=== PATIENT | male | born 1955 | race Caucasian/White ===

== ENCOUNTER → 2016-11-05 | Outpatient (REF) | payer OTHER, MEDICAID | LOC: M LAB REF 16:40 | PROVIDERS: ATTEND Nurse Practitioner Family | DX: I11.9 Hypertensive heart disease without heart failure (principal) ==

== ENCOUNTER → 2016-11-11 | Outpatient (REF) | payer OTHER ==
[2016-11-11 12:15] LABS: ALBUMIN 3.9 GM/DL (3.2-5.2); ALBUMIN/GLOBULIN RATIO 1.26 (1.00-1.93); ALKALINE PHOSPHATASE 61 U/L (45-117); ALT/SGPT 19 U/L (12-78); ANION GAP 9 MEQ/L (8-16); AST/SGOT 13 U/L (15-37); BILIRUBIN,TOTAL 0.6 MG/DL (0.2-1.0); BLOOD UREA NITROGEN 11 MG/DL (7-18); CALCIUM LEVEL 9.3 MG/DL (8.8-10.2); CARBON DIOXIDE LEVEL 31 MEQ/L (21-32); CHLORIDE LEVEL 100 MEQ/L (98-107); CHOLESTEROL LEVEL 201 MG/DL (<200); CREATININE FOR GFR 1.07 MG/DL (0.70-1.30); GLOMERULAR FILTRATION RATE > 60.0 (>49); GLUCOSE, FASTING 107 MG/DL (80-110); POTASSIUM SERUM 3.7 MEQ/L (3.5-5.1); SODIUM LEVEL 140 MEQ/L (136-145); TRIGLYCERIDES LEVEL 191 MG/DL (<150)
== END ==
LOC: M SFHCCLAY 08:17
PROVIDERS: ATTEND Family Medicine
DX: E78.2 Mixed hyperlipidemia (principal); I10 Essential (primary) hypertension

== ENCOUNTER → 2017-05-20 | Outpatient (REF) | payer OTHER ==
[2017-05-20 12:33] LABS: ALBUMIN 3.6 GM/DL (3.2-5.2); ALBUMIN/GLOBULIN RATIO 1.13 (1.00-1.93); ALKALINE PHOSPHATASE 60 U/L (45-117); ALT/SGPT 25 U/L (12-78); ANION GAP 8 MEQ/L (8-16); AST/SGOT 15 U/L (15-37); BILIRUBIN,TOTAL 0.5 MG/DL (0.2-1.0); BLOOD UREA NITROGEN 9 MG/DL (7-18); CALCIUM LEVEL 8.9 MG/DL (8.8-10.2); CARBON DIOXIDE LEVEL 30 MEQ/L (21-32); CHLORIDE LEVEL 104 MEQ/L (98-107); CHOLESTEROL LEVEL 108 MG/DL (<200); CREATININE FOR GFR 0.96 MG/DL (0.70-1.30); FREE T4 0.87 NG/DL (0.76-1.46); GLOMERULAR FILTRATION RATE > 60.0 (>49); GLUCOSE, FASTING 101 MG/DL (80-110); POTASSIUM SERUM 3.9 MEQ/L (3.5-5.1); SODIUM LEVEL 142 MEQ/L (136-145); TOTAL PROTEIN 6.8 GM/DL (6.4-8.2); TRIGLYCERIDES LEVEL 120 MG/DL (<150)
== END ==
LOC: M SFHCCLAY 08:14
PROVIDERS: ATTEND Family Medicine
DX: E78.2 Mixed hyperlipidemia (principal); E07.9 Disorder of thyroid, unspecified; Z00.00 Encounter for general adult medical examination without abnormal findings; Z12.5 Encounter for screening for malignant neoplasm of prostate
CPT/HCPCS: 80053; 80061; 84439; 84443; 86787; 86803; G0103

== ENCOUNTER → 2017-11-24 | Outpatient (REF) | payer OTHER ==
[2017-11-24 11:54] LABS: ALBUMIN 3.9 GM/DL (3.2-5.2); ALBUMIN/GLOBULIN RATIO 1.22 (1.00-1.93); ALKALINE PHOSPHATASE 72 U/L (45-117); ALT/SGPT 23 U/L (12-78); ANION GAP 6 MEQ/L (8-16); AST/SGOT 17 U/L (7-37); BILIRUBIN,TOTAL 0.9 MG/DL (0.2-1.0); BLOOD UREA NITROGEN 13 MG/DL (7-18); CALCIUM LEVEL 9.3 MG/DL (8.8-10.2); CARBON DIOXIDE LEVEL 30 MEQ/L (21-32); CHLORIDE LEVEL 102 MEQ/L (98-107); CHOLESTEROL LEVEL 145 MG/DL (<200); CHOLESTEROL RISK RATIO 3.452 (<5); CREATININE FOR GFR 1.11 MG/DL (0.70-1.30); FREE T4 0.76 NG/DL (0.76-1.46); GLOMERULAR FILTRATION RATE > 60.0 (>49); GLUCOSE, FASTING 107 MG/DL (70-100); HDL CHOLESTEROL 42 MG/DL (>40); LDL CHOLESTEROL 67.2 MG/DL (<100); NON-HDL-C 103 MG/DL; POTASSIUM SERUM 3.7 MEQ/L (3.5-5.1); PSA SCREENING 0.54 NG/ML (< 4.0); SODIUM LEVEL 138 MEQ/L (136-145); TOTAL PROTEIN 7.1 GM/DL (6.4-8.2); TRIGLYCERIDES LEVEL 179 MG/DL (<150)
== END ==
LOC: M SFHCCLAY 08:16
DX: E78.2 Mixed hyperlipidemia (principal); E07.9 Disorder of thyroid, unspecified; Z12.5 Encounter for screening for malignant neoplasm of prostate
CPT/HCPCS: 84443

== ENCOUNTER → 2018-05-07 | Outpatient (REF) | payer OTHER, MEDICAID ==
[2018-05-07 12:54] LABS: ALBUMIN 3.6 GM/DL (3.2-5.2); ALBUMIN/GLOBULIN RATIO 1.09 (1.00-1.93); ALKALINE PHOSPHATASE 69 U/L (45-117); ALT/SGPT 23 U/L (12-78); ANION GAP 9 MEQ/L (8-16); AST/SGOT 15 U/L (7-37); BILIRUBIN,TOTAL 0.6 MG/DL (0.2-1.0); BLOOD UREA NITROGEN 9 MG/DL (7-18); CALCIUM LEVEL 9.3 MG/DL (8.8-10.2); CARBON DIOXIDE LEVEL 28 MEQ/L (21-32); CHLORIDE LEVEL 104 MEQ/L (98-107); CHOLESTEROL LEVEL 109 MG/DL (<200); CHOLESTEROL RISK RATIO 3.027 (<5); CREATININE FOR GFR 1.08 MG/DL (0.70-1.30); FREE T4 0.81 NG/DL (0.76-1.46); GLOMERULAR FILTRATION RATE > 60.0 (>49); GLUCOSE, FASTING 91 MG/DL (70-100); HDL CHOLESTEROL 36 MG/DL (>40); LDL CHOLESTEROL 52.2 MG/DL (<100); NON-HDL-C 73 MG/DL; POTASSIUM SERUM 3.6 MEQ/L (3.5-5.1); SODIUM LEVEL 141 MEQ/L (136-145); TOTAL PROTEIN 6.9 GM/DL (6.4-8.2); TRIGLYCERIDES LEVEL 104 MG/DL (<150)
== END ==
LOC: M SFHCCLAY 08:19
DX: E78.2 Mixed hyperlipidemia (principal); E07.9 Disorder of thyroid, unspecified
CPT/HCPCS: 84443

== ENCOUNTER → 2018-11-06 | Outpatient (REF) | payer OTHER, MEDICAID ==
[2018-11-06 12:25] LABS: ALBUMIN 3.7 GM/DL (3.2-5.2); ALT/SGPT 18 U/L (12-78); BILIRUBIN,TOTAL 0.6 MG/DL (0.2-1.0); BLOOD UREA NITROGEN 14 MG/DL (7-18); CALCIUM LEVEL 8.7 MG/DL (8.8-10.2); CARBON DIOXIDE LEVEL 29 MEQ/L (21-32); CHLORIDE LEVEL 104 MEQ/L (98-107); CHOLESTEROL LEVEL 129 MG/DL (<200); CHOLESTEROL RISK RATIO 3.146 (<5); CREATININE FOR GFR 1.17 MG/DL (0.70-1.30); FREE T4 0.83 NG/DL (0.76-1.46); GLOMERULAR FILTRATION RATE > 60.0 (>49); GLUCOSE, FASTING 91 MG/DL (70-100); HDL CHOLESTEROL 41 MG/DL (>40); LDL CHOLESTEROL 64 MG/DL (<100); NON-HDL-C 88 MG/DL; POTASSIUM SERUM 3.6 MEQ/L (3.5-5.1); SODIUM LEVEL 140 MEQ/L (136-145); TOTAL PROTEIN 6.7 GM/DL (6.4-8.2); TRIGLYCERIDES LEVEL 118 MG/DL (<150)
== END ==
LOC: M SFHCCLAY 08:22
PROVIDERS: ATTEND Family Medicine
DX: I10 Essential (primary) hypertension (principal); E78.2 Mixed hyperlipidemia; E07.9 Disorder of thyroid, unspecified

== ENCOUNTER → 2019-06-16 | Outpatient (REF) | payer MEDICARE, MEDICAID ==
[2019-06-16 12:39] LABS: ALBUMIN 3.5 GM/DL (3.2-5.2); ALT/SGPT 20 U/L (12-78); BILIRUBIN,TOTAL 0.6 MG/DL (0.2-1.0); BLOOD UREA NITROGEN 12 MG/DL (7-18); CALCIUM LEVEL 9.1 MG/DL (8.8-10.2); CARBON DIOXIDE LEVEL 29 MEQ/L (21-32); CHLORIDE LEVEL 102 MEQ/L (98-107); CHOLESTEROL LEVEL 148 MG/DL (<200); CREATININE FOR GFR 1.02 MG/DL (0.70-1.30); GLOMERULAR FILTRATION RATE > 60.0 (>49); GLUCOSE, FASTING 99 MG/DL (70-100); HDL CHOLESTEROL 40 MG/DL (>40); LDL CHOLESTEROL 75 MG/DL (<100); NON-HDL-C 108 MG/DL; POTASSIUM SERUM 3.6 MEQ/L (3.5-5.1); SODIUM LEVEL 138 MEQ/L (136-145); TOTAL PROTEIN 6.6 GM/DL (6.4-8.2); TRIGLYCERIDES LEVEL 165 MG/DL (<150)
== END ==
LOC: M SFHCCLAY 08:48
PROVIDERS: ATTEND Family Medicine
DX: Z12.5 Encounter for screening for malignant neoplasm of prostate (principal); E07.9 Disorder of thyroid, unspecified; I10 Essential (primary) hypertension; E78.2 Mixed hyperlipidemia
CPT/HCPCS: 80053; 80061; 84443; G0103

== ENCOUNTER → 2019-12-22 | Outpatient (REF) | payer MEDICARE, MEDICAID ==
[2019-12-22 16:43] LABS: ALBUMIN 3.8 GM/DL (3.2-5.2); ALT/SGPT 19 U/L (12-78); BILIRUBIN,TOTAL 0.7 MG/DL (0.2-1.0); BLOOD UREA NITROGEN 11 MG/DL (7-18); CALCIUM LEVEL 9.6 MG/DL (8.8-10.2); CARBON DIOXIDE LEVEL 29 MEQ/L (21-32); CHLORIDE LEVEL 101 MEQ/L (98-107); CREATININE FOR GFR 1.07 MG/DL (0.70-1.30); GLOMERULAR FILTRATION RATE > 60.0 (>49); GLUCOSE, FASTING 98 MG/DL (70-100); POTASSIUM SERUM 3.8 MEQ/L (3.5-5.1); SODIUM LEVEL 136 MEQ/L (136-145); TOTAL PROTEIN 7.3 GM/DL (6.4-8.2)
== END ==
LOC: M SFHCCLAY 10:24
PROVIDERS: ATTEND Family Medicine
DX: I10 Essential (primary) hypertension (principal)

== ENCOUNTER → 2020-03-20 | Outpatient (REF) | payer MEDICARE, MEDICAID ==
[2020-03-20 12:53] LABS: BLOOD UREA NITROGEN 10 MG/DL (7-18); CALCIUM LEVEL 9.5 MG/DL (8.8-10.2); CARBON DIOXIDE LEVEL 29 MEQ/L (21-32); CHLORIDE LEVEL 103 MEQ/L (98-107); CHOLESTEROL LEVEL 131 MG/DL (<200); CHOLESTEROL RISK RATIO 3.447 (<5); CREATININE FOR GFR 1.17 MG/DL (0.70-1.30); GLOMERULAR FILTRATION RATE > 60.0 (>49); GLUCOSE, FASTING 100 MG/DL (70-100); HDL CHOLESTEROL 38 MG/DL (>40); LDL CHOLESTEROL 56 MG/DL (<100); NON-HDL-C 93 MG/DL; POTASSIUM SERUM 3.7 MEQ/L (3.5-5.1); SODIUM LEVEL 140 MEQ/L (136-145); TRIGLYCERIDES LEVEL 184 MG/DL (<150)
== END ==
LOC: M LABDRAWC 11:28
PROVIDERS: ATTEND Physician Assistant
DX: E78.2 Mixed hyperlipidemia (principal)

== ENCOUNTER → 2020-09-22 | Outpatient (REF) | payer MEDICARE, MEDICAID ==
[2020-09-22 12:25] LABS: BASO # 0.1 10^3/uL (0.0-0.2); BASO % 0.9 % (0.0-1.0); EOS # 0.2 10^3/uL (0.0-0.5); EOS % 2.1 % (0.0-3.0); HEMATOCRIT 47.4 % (42.0-52.0); LYMPH # 3.7 10^3/uL (1.5-5.0); LYMPH % 33.9 % (24.0-44.0); MEAN CORPUSCULAR HEMOGLOBIN 30.9 pg (27.0-33.0); MEAN CORPUSCULAR HGB CONC 33.8 g/dl (32.0-36.5); MEAN CORPUSCULAR VOLUME 91.5 fl (80.0-96.0); NEUTROPHILS # 5.8 10^3/uL (1.5-8.5); NEUTROPHILS % 53.7 % (36.0-66.0); PLATELET COUNT, AUTOMATED 272 10^3/uL (150-450); RED BLOOD COUNT 5.18 10^6/uL (4.30-6.10); WHITE BLOOD COUNT 10.9 10^3/uL (4.0-10.0)
[2020-09-22 13:01] LABS: BLOOD UREA NITROGEN 10 MG/DL (7-18); CALCIUM LEVEL 9.7 MG/DL (8.8-10.2); CARBON DIOXIDE LEVEL 32 MEQ/L (21-32); CHLORIDE LEVEL 103 MEQ/L (98-107); CHOLESTEROL LEVEL 135 MG/DL (<200); CREATININE FOR GFR 1.12 MG/DL (0.70-1.30); GLOMERULAR FILTRATION RATE > 60.0 (>49); GLUCOSE, FASTING 106 MG/DL (70-100); HDL CHOLESTEROL 30 MG/DL (>40); LDL CHOLESTEROL 61 MG/DL (<100); NON-HDL-C 105 MG/DL; POTASSIUM SERUM 3.9 MEQ/L (3.5-5.1); SODIUM LEVEL 139 MEQ/L (136-145); TRIGLYCERIDES LEVEL 220 MG/DL (<150)
== END ==
LOC: M LABDRAWC 11:12
PROVIDERS: ATTEND Physician Assistant
DX: E78.2 Mixed hyperlipidemia (principal); I11.9 Hypertensive heart disease without heart failure

== ENCOUNTER → 2020-12-05 | Outpatient (CLI) | payer MEDICARE, MEDICAID ==
--- NOTE | 2020-12-05 10:30 | REP ---
INDICATION: M25.421, SEWLLING OF RIGHT ELBOW COMPARISON: None. TECHNIQUE: There are four views. FINDINGS: There is no fracture or dislocation. Mineralization and joint spaces are normal. There are no calcifications or foreign bodies. I suspect there is soft tissue edema posteriorly. This should be confirmed clinically. There is no joint effusion. There is a small olecranon spur. IMPRESSION: Question soft tissue edema posteriorly, confirm clinically. No joint effusion. Small olecranon spur. <Electronically signed by Moncho Stallworth > 12/05/20 1022
== END ==
LOC: M CLY 10:07
PROVIDERS: ATTEND Family Medicine
DX: M25.421 Effusion, right elbow (principal)
CPT/HCPCS: 73080; G0442; G0444

== ENCOUNTER → 2020-12-15 | Outpatient (CLI) | payer MEDICARE, MEDICAID ==
--- NOTE | 2020-12-15 08:20 | REP ---
INDICATION: AAA H/O SMOKER. COMPARISON: None. TECHNIQUE: Abdominal aortic sonography. FINDINGS: Scanning through the retroperitoneum demonstrates that the abdominal aorta is normal in caliber at the level of the diaphragmatic hiatus measuring 2.6 x 2.5 cm in AP by transverse dimension respectively. The measurements of the aorta at the level of the renal artery origins could not be may due to abdominal bowel gas. There is no evidence of aneurysm.. The distal aorta tapers to 1.4 x 2.0 cm AP by transverse dimension. The right and left common iliac arteries are normal measuring 1.0 and 1.0 cm in AP dimension respectively. No aneurysm is seen. No periaortic disease is observed. IMPRESSION: No evidence of abdominal aortic aneurysm.. <Electronically signed by Jose Carlos Urias > 12/15/20 0892
== END ==
LOC: M RAD 07:42
PROVIDERS: ATTEND Family Medicine
DX: I71.4 Abdominal aortic aneurysm, without rupture (principal); Z87.891 Personal history of nicotine dependence

== ENCOUNTER → 2020-12-20 | Outpatient (CLI) | payer MEDICARE, MEDICAID ==
--- NOTE | 2020-12-20 12:33 | REP ---
INDICATION: LUNG SCREENING, CT SCAN 1ST THEN US COMPARISON: None. TECHNIQUE: Axial noncontrast images from the thoracic inlet to the upper abdomen using low-dose lung screening technique (LDCT). FINDINGS: There is a 16 mm rounded noncalcified nodule along the posterior aspect of the left lower lobe (series 201; image 74). Remainder lung reardon are relatively clear. IMPRESSION: Lung-RADS category 4 B. Management recommendations include PET-CT. <Electronically signed by Mariusz Daniels > 12/20/20 1231
== END ==
LOC: M RAD 11:03
PROVIDERS: ATTEND Family Medicine
DX: Z12.2 Encounter for screening for malignant neoplasm of respiratory organs (principal); Z87.891 Personal history of nicotine dependence; R91.1 Solitary pulmonary nodule; M25.421 Effusion, right elbow

== ENCOUNTER → 2020-12-20 | Outpatient (CLI) | payer MEDICARE, MEDICAID ==
--- NOTE | 2020-12-20 12:25 | REP ---
INDICATION: SWELLING OF RT ELBOW, CT 1ST THEN US COMPARISON: None TECHNIQUE: Grayscale ultrasound examination using linear high-frequency transducer. FINDINGS: Directed ultrasound examination along the posterior elbow demonstrates swelling/edema and central complex cystic area measuring 14 x 5 x 17 mm which is otherwise nonspecific and avascular. IMPRESSION: 1. Complex cystic area with surrounding soft tissue swelling. Possible bursitis. <Electronically signed by Mariusz Daniels > 12/20/20 [id number]
== END ==
LOC: M RAD 11:07
PROVIDERS: ATTEND Family Medicine
DX: M25.421 Effusion, right elbow (principal)

== ENCOUNTER → 2021-01-04 | Outpatient (CLI) | payer MEDICARE, MEDICAID ==
--- NOTE | 2021-01-04 10:27 | PFTRPT ---
Height: 66.00 Inches Weight: 225.00 Lbs BSA: 2.10 Diagnosis: R91.1 DATE: 01/04/2021 ORDERING PHYSICIAN: Dr. Fuentes Michele Pre and post bronchodilator studies have excellent technical quality. Forced vital capacity is normal. FEV1 in borderline proportion. Obstructive index is therefore borderline as well. Expiratory limit of the flow-volume loop does suggest some nonspecific flow rate limitation and some question of effort is raised. No significant bronchodilator response is identified. Total lung capacity is normal. Residual volume does suggest a degree of air trapping. Diffusing capacity is reduced and does not correct for alveolar volume. Hemoglobin is acceptable at 15.9. Airway resistance and conductance are normal. IMPRESSION: Suspected degree of air trapping with a diffusing capacity impairment. Please correlate clinically. MTDD
== END ==
LOC: M CARPUL 09:50
PROVIDERS: ATTEND Internal Medicine Pulmonary Disease
DX: R91.1 Solitary pulmonary nodule (principal)

== ENCOUNTER → 2021-01-15 | Outpatient (REF) | payer MEDICARE, MEDICAID ==
[~2021-01-15] MED LIST: AMLO1TAB25 PO; ASPI81TA26 PO; ATOR80TA59 PO; BYST20TA2 PO; CHLO125TA PO; CLOP75TA2 PO; COLA100C5 PO; DOXA1TAB42 PO; EZET10TA21 PO; IBUP80TA PO; INCR1INH INH; LOSA100T50 PO; SPIR-10 PO; SYST0.4D2 OU; TRAM50TA2 PO
[2021-01-15 16:15] LABS: PLATELET COUNT, AUTOMATED 278 10^3/uL (150-450)
[2021-01-15 16:26] LABS: INR 0.91; PROTHROMBIN TIME 12.4 SECONDS (12.5-14.3)
[2021-01-15 16:27] LABS: PARTIAL THROMBOPLASTIN TIME 30.6 SECONDS (24.2-38.5)
== END ==
LOC: M LABDRAWC 15:50
PROVIDERS: ATTEND Internal Medicine Pulmonary Disease
DX: R91.1 Solitary pulmonary nodule (principal); Z79.82 Long term (current) use of aspirin

== ENCOUNTER → 2021-01-16 | Outpatient (CLI) | payer MEDICARE, MEDICAID ==
[~2021-01-16] MED LIST changes: +LIDOCAINE 1% MDV 20ML VIAL As Ordered ONE
[2021-01-16 08:39] LABS: PLATELET COUNT, AUTOMATED 274 10^3/uL (150-450)
[2021-01-16 08:51] LABS: INR 0.9; PROTHROMBIN TIME 12.3 SECONDS (12.5-14.3)
[2021-01-16 08:52] LABS: PARTIAL THROMBOPLASTIN TIME 27.8 SECONDS (24.2-38.5)
[2021-01-16 11:45] VITALS: BP 160/70
--- NOTE | 2021-01-16 11:46 | REP ---
INDICATION: POST LEFT LUNG BIOPSY, 1 VIEW, PA EXPIRATION. COMPARISON: 11/24/2009. TECHNIQUE: PA view chest in expiration. FINDINGS: There is no pneumothorax status post left lung biopsy. There is no acute infiltrate. The heart and mediastinum are unremarkable. Multiple metallic clips are seen in the soft tissues of the neck. There is a stent in the left side of the neck. IMPRESSION: No pneumothorax status post left lung biopsy. <Electronically signed by Moncho Sheldon > 01/16/21 114
--- NOTE | 2021-01-16 17:02 | REP ---
INDICATION: SOLITARY PULMONARY NODULE. COMPARISON: None. TECHNIQUE: The procedure was performed under the direct supervision of Dr. Sheldon. The patient has a history of a 1.6 cm rounded noncalcified nodule along the posterior aspect of the left lower lobe seen on a previous CT scan dated 12/20/2020. The risks and benefits of the procedure were explained to the patient and informed consent was obtained. The left lower lobe lung nodule was localized using CT guidance. The skin was prepped and draped in a sterile fashion. 1% lidocaine was used as a local anesthetic. Using CT guidance a 19/20 gauge coaxial needle biopsy system was inserted and advanced into the nodule. Five core biopsy samples were obtained and sent to the lab. The patient tolerated the procedure well and there were no immediate complications. After the appropriate amount to monitor convalescence the patient was discharged from the department. FINDINGS: None IMPRESSION: CT-guided left lower lobe lung biopsy. <Electronically signed by Mode Clifford > 01/16/21 0472 <Electronically signed by Moncho Sheldon > 01/16/21 [id number]
== END ==
LOC: M IRPRO 08:09
PROVIDERS: ATTEND Internal Medicine Pulmonary Disease
DX: R91.8 Other nonspecific abnormal finding of lung field (principal)

== ENCOUNTER → 2021-03-16 | Outpatient (CLI) | payer MEDICARE, MEDICAID ==
[~2021-03-16] MED LIST changes: -LIDOCAINE 1% MDV 20ML VIAL As Ordered ONE
== END ==
LOC: M LABSMTC 10:41
PROVIDERS: ATTEND Anesthesiology
DX: Z01.812 Encounter for preprocedural laboratory examination (principal); Z20.822 Contact with and (suspected) exposure to COVID-19

== ENCOUNTER 2021-03-21 08:41 | Day surgery (SDC) | payer MEDICARE, MEDICAID ==
[~2021-03-21] VITALS: Ht 170.2 cm; Wt 102.5 kg
[~2021-03-21 08:41] MED LIST changes: +NS 1,000 ML IV ONE
[2021-03-21] MEDS ORDERED: LIDOCAINE 2% 100MG/5ML SDV (FOR ANES.) As Ordered ONE (09:42)
[2021-03-21] MEDS ORDERED: propofoL 200 MG/20 ML VIAL As Ordered ONE (09:42)
--- NOTE | 2021-03-21 10:04 | ROOR ---
Patient Name: Aramis Bhatia Procedure Date: 03/21/2021 9:51 AM Date of : 1955 Age: 65 Room: [facility] Gender: Male Note Status: Finalized Procedure: Total Colonoscopy to Cecum Indications: High risk colon cancer surveillance: Personal history of colonic polyps Providers: Taye Lorenzana MD Referring MD: Corrie ORTEGA DO Requesting Provider: Medicines: Monitored Anesthesia Care Complications: No immediate complications. Procedure: Pre-Anesthesia Assessment: - The heart rate, respiratory rate, oxygen saturations, blood pressure, adequacy of pulmonary ventilation, and response to care were monitored throughout the procedure. The Colonoscope was introduced through the anus and advanced to the cecum, identified by appendiceal orifice and ileocecal valve. The colonoscopy was performed without difficulty. The patient tolerated the procedure well. The quality of the bowel preparation was excellent. Findings: The perianal and digital rectal examinations were normal. Non-bleeding internal hemorrhoids were found during retroflexion. The hemorrhoids were small and Grade I (internal hemorrhoids that do not prolapse). No other significant abnormalities were identified in a careful examination of the remainder of the colon. The exam was otherwise without abnormality on direct and retroflexion views. Impression: - Non-bleeding internal hemorrhoids. - The examination was otherwise normal on direct and retroflexion views. - No specimens collected. - The exam was otherwise normal to the cecum. Recommendation: - Patient has a contact number available for emergencies. The signs and symptoms of potential delayed complications were discussed with the patient. Return to normal activities tomorrow. Written discharge instructions were provided to the patient. - High fiber diet. - Discharge patient to home. - Continue present medications. - Repeat colonoscopy in 5 years for surveillance. - Return to referring physician. - The findings and recommendations were discussed with the patient's family. Procedure Code(s): --- Professional --- G0105, Colorectal cancer screening; colonoscopy on individual at high risk Diagnosis Code(s): --- Professional --- Z86.010, Personal history of colonic polyps K64.0, First degree hemorrhoids CPT copyright 2019 [employer]. All rights reserved. The codes documented in this report are preliminary and upon interior surface insulation worker review may be revised to meet current compliance requirements. Taye Lorenzana MD Taye Lorenzana MD 03/21/2021 10:04:04 AM Electronically signed by Taye Lorenzana MD Number of Addenda: 0 Note Initiated On: 03/21/2021 9:51 AM Estimated Blood Loss: Estimated blood loss: none.
[2021-03-21 10:19] VITALS: BP 136/98
== END 2021-03-21 10:21 | disposition home or self-care (01) ==
LOC: M OPP 08:41
PROVIDERS: ATTEND Internal Medicine Gastroenterology
DX: Z12.11 Encounter for screening for malignant neoplasm of colon (principal); Z86.010 Personal history of colon polyps; K64.0 First degree hemorrhoids; Z79.82 Long term (current) use of aspirin; Z79.891 Long term (current) use of opiate analgesic; Z79.899 Other long term (current) drug therapy; Z87.891 Personal history of nicotine dependence

== ENCOUNTER → 2021-03-28 | Outpatient (REF) | payer MEDICARE, MEDICAID ==
[~2021-03-28] MED LIST changes: -NS 1,000 ML IV ONE
[2021-03-28 12:26] LABS: BLOOD UREA NITROGEN 8 MG/DL (7-18); CALCIUM LEVEL 9.3 MG/DL (8.8-10.2); CARBON DIOXIDE LEVEL 31 MEQ/L (21-32); CHLORIDE LEVEL 103 MEQ/L (98-107); CHOLESTEROL LEVEL 86 MG/DL (<200); CHOLESTEROL RISK RATIO 2.774 (<5); CREATININE FOR GFR 0.96 MG/DL (0.70-1.30); GLOMERULAR FILTRATION RATE > 60.0 (>49); GLUCOSE, FASTING 95 MG/DL (70-100); HDL CHOLESTEROL 31 MG/DL (>40); LDL CHOLESTEROL 32 MG/DL (<100); NON-HDL-C 55 MG/DL; POTASSIUM SERUM 3.5 MEQ/L (3.5-5.1); SODIUM LEVEL 139 MEQ/L (136-145); TRIGLYCERIDES LEVEL 114 MG/DL (<150)
== END ==
LOC: M LABDRAWC 11:20
PROVIDERS: ATTEND Physician Assistant
DX: E78.2 Mixed hyperlipidemia (principal)

== ENCOUNTER → 2021-07-17 | Outpatient (CLI) | payer MEDICARE, MEDICAID ==
--- NOTE | 2021-07-17 12:23 | REP ---
INDICATION: SOLITARY PULMONARY NODULE COMPARISON: 12/20/2020 a low-dose screening CT of the lungs TECHNIQUE: Standard helical technique without intravenous contrast FINDINGS: Mediastinum and pulmonary lisa show no evidence of a mass or adenopathy. There are no pleural or pericardial effusions. The imaged upper abdomen and imaged osseous structures are within normal limits. Evaluation of the lung reardon shows a 1.6 cm sized pleural base nodule in the left lower lobe which is unchanged. There is an unchanged 5 mm size nodule in the posterior segment of the right upper lobe. There is a 2 mm sized focal area of pleural thickening in the major fissure in the left mid lung zone which is also unchanged. No new abnormal nodules, masses, or opacities have developed. IMPRESSION: 1. The dominant nodule seen in the left lower lobe is unchanged. This was biopsied on 01/13/2021. 2. Other stable lung nodules as described above. By report this was negative for malignancy. According to the revised Fleischner society criteria a 1 year follow-up CT examination of the chest is recommended. <Electronically signed by aJgjit Adair > 07/17/21 2384
== END ==
LOC: M PLAIMG 11:34
PROVIDERS: ATTEND Internal Medicine Pulmonary Disease
DX: R91.1 Solitary pulmonary nodule (principal)

== ENCOUNTER → 2021-12-24 | Outpatient (REF) | payer MEDICARE, MEDICAID ==
[~2021-12-24] MED LIST changes: +LOSA100T45 PO; -LOSA100T50 PO
[2021-12-24 11:35] LABS: CALCIUM LEVEL 9.4 MG/DL (8.8-10.2); CHOLESTEROL RISK RATIO 2.8 (<5); CREATININE FOR GFR 1.39 MG/DL (0.70-1.30); GLOMERULAR FILTRATION RATE 54.3 (>49); POTASSIUM SERUM 3.6 MEQ/L (3.5-5.1)
== END ==
LOC: M SFHCCLAY 08:23
PROVIDERS: ATTEND Family Medicine
DX: Z00.00 Encounter for general adult medical examination without abnormal findings (principal); I11.9 Hypertensive heart disease without heart failure; E78.2 Mixed hyperlipidemia

== ENCOUNTER → 2021-12-28 | Outpatient (REF) | payer MEDICARE, MEDICAID ==
[2021-12-28 11:58] LABS: BLOOD UREA NITROGEN 9 MG/DL (7-18); CALCIUM LEVEL 9.3 MG/DL (8.8-10.2); CARBON DIOXIDE LEVEL 31 MEQ/L (21-32); CHLORIDE LEVEL 101 MEQ/L (98-107); CREATININE FOR GFR 0.99 MG/DL (0.70-1.30); GLOMERULAR FILTRATION RATE > 60.0 (>49); GLUCOSE, FASTING 121 MG/DL (70-100); POTASSIUM SERUM 3.6 MEQ/L (3.5-5.1); SODIUM LEVEL 137 MEQ/L (136-145)
== END ==
LOC: M SFHCCLAY 09:17
PROVIDERS: ATTEND Family Medicine
DX: R79.89 Other specified abnormal findings of blood chemistry (principal)

== ENCOUNTER → 2022-01-25 | Outpatient (CLI) | payer MEDICARE | LOC: M PLAIMG 08:53 | PROVIDERS: ATTEND Internal Medicine Pulmonary Disease | DX: R91.1 Solitary pulmonary nodule (principal) ==

== ENCOUNTER → 2022-06-20 | Outpatient (REF) | payer MEDICARE, MEDICAID ==
[2022-06-20 17:38] LABS: HEMATOCRIT 44.9 % (42.0-52.0); HEMOGLOBIN 15.4 g/dl (13.5-17.5); MEAN CORPUSCULAR HEMOGLOBIN 31.8 pg (27.0-33.0); MEAN CORPUSCULAR HGB CONC 34.3 g/dl (32.0-36.5); MEAN CORPUSCULAR VOLUME 92.8 fl (80.0-96.0); PLATELET COUNT, AUTOMATED 295 10^3/uL (150-450); RED BLOOD COUNT 4.84 10^6/uL (4.30-6.10)
[2022-06-20 18:13] LABS: ALBUMIN 3.6 GM/DL (3.2-5.2); ALT/SGPT 24 U/L (12-78); BILIRUBIN,TOTAL 0.6 MG/DL (0.2-1.0); BLOOD UREA NITROGEN 10 MG/DL (7-18); CALCIUM LEVEL 9.7 MG/DL (8.8-10.2); CARBON DIOXIDE LEVEL 30 MEQ/L (21-32); CHLORIDE LEVEL 101 MEQ/L (98-107); CHOLESTEROL LEVEL 95 MG/DL (<200); CREATININE FOR GFR 0.98 MG/DL (0.70-1.30); GLOMERULAR FILTRATION RATE > 60.0 (>49); GLUCOSE, FASTING 98 MG/DL (70-100); HDL CHOLESTEROL 38 MG/DL (>40); LDL CHOLESTEROL 24 MG/DL (<100); NON-HDL-C 57 MG/DL; POTASSIUM SERUM 4.2 MEQ/L (3.5-5.1); SODIUM LEVEL 137 MEQ/L (136-145); TOTAL PROTEIN 6.9 GM/DL (6.4-8.2); TRIGLYCERIDES LEVEL 165 MG/DL (<150)
== END ==
LOC: M SFHCCLAY 11:03
PROVIDERS: ATTEND Nurse Practitioner Family
DX: E78.2 Mixed hyperlipidemia (principal); I65.23 Occlusion and stenosis of bilateral carotid arteries; I10 Essential (primary) hypertension; R91.1 Solitary pulmonary nodule

== ENCOUNTER → 2022-12-20 | Outpatient (REF) | payer MEDICARE, MEDICAID ==
[2022-12-20 18:15] LABS: ALBUMIN 3.6 G/DL (3.2-5.2); ALKALINE PHOSPHATASE 66 U/L (46-116); ALT/SGPT 20 U/L (7.0-40); AST/SGOT 22 U/L (<34); BILIRUBIN,TOTAL 0.5 MG/DL (0.3-1.2); BLOOD UREA NITROGEN 13 MG/DL (9-23); CARBON DIOXIDE LEVEL 30 MMOL/L (20-31); CHLORIDE LEVEL 105 MMOL/L (98-107); CHOLESTEROL LEVEL 96 MG/DL (<200); CHOLESTEROL RISK RATIO 2.64 (<5); GLOMERULAR FILTRATION RATE > 60.0 (>49); GLUCOSE, FASTING 109 MG/DL (74-106); HDL CHOLESTEROL 36.3 MG/DL (>40); LDL CHOLESTEROL 30.5 MG/DL (<100); NON-HDL-C 59.7 MG/DL; POTASSIUM SERUM 3.4 MMOL/L (3.5-5.1); SODIUM LEVEL 140 MMOL/L (136-145); TOTAL PROTEIN 6.4 G/DL (5.7-8.2); TRIGLYCERIDES LEVEL 146 MG/DL (<150)
== END ==
LOC: M SFHCCLAY 09:45
PROVIDERS: ATTEND Nurse Practitioner Family
DX: E78.2 Mixed hyperlipidemia (principal); I10 Essential (primary) hypertension; Z12.5 Encounter for screening for malignant neoplasm of prostate
CPT/HCPCS: 80053; 80061; G0103

== ENCOUNTER → 2023-01-30 | Outpatient (CLI) | payer MEDICARE, MEDICAID ==
[~2023-01-30] MED LIST changes: -LOSA100T45 PO; +LOSA100T46 PO
== END ==
LOC: M RAD 12:38
PROVIDERS: ATTEND Internal Medicine Pulmonary Disease
DX: Z12.2 Encounter for screening for malignant neoplasm of respiratory organs (principal); Z87.891 Personal history of nicotine dependence; R91.1 Solitary pulmonary nodule

== ENCOUNTER → 2023-03-27 | Outpatient (CLI) | payer MEDICARE, MEDICAID | LOC: M RAD 11:23 | PROVIDERS: ATTEND Surgery Vascular Surgery | DX: I65.29 Occlusion and stenosis of unspecified carotid artery (principal) ==

== ENCOUNTER → 2023-06-20 | Outpatient (REF) | payer MEDICARE, MEDICAID ==
[2023-06-24 15:50] LABS: ALKALINE PHOSPHATASE 65 IU/L (44-121); ALT/SGPT 15 IU/L (0-32); AST/SGOT 16 IU/L (0-40); BILIRUBIN,TOTAL 0.6 MG/DL (0.0-1.2); BLOOD UREA NITROGEN 11 MG/DL (8-27); CALCIUM LEVEL 9.6 MG/DL (8.7-10.3); CARBON DIOXIDE LEVEL 22 mmol/L (20-29); CHLORIDE LEVEL 101 mmol/L (96-106); CHOLESTEROL LEVEL 96 MG/DL (100-199); CREATININE FOR GFR 1.09 MG/DL (0.57-1.00); GLOMERULAR FILTRATION RATE > 60.0 (>59); POTASSIUM SERUM 3.6 mmol/L (3.5-5.2); SODIUM LEVEL 140 mmol/L (134-144); TRIGLYCERIDES LEVEL 149 MG/DL (0-149)
[2023-06-24 15:51] LABS: CHOLESTEROL RISK RATIO 2.742 (<5); HDL CHOLESTEROL 35 MG/DL (>39); LDL CHOLESTEROL 31.2 MG/DL (<100); NON-HDL-C 61 MG/DL; TOTAL PROTEIN 6.4 G/DL (6.0-8.5)
[2023-06-24 15:52] LABS: GLUCOSE, FASTING 125 MG/DL (70-99)
== END ==
LOC: M SFHCCLAY 10:14
PROVIDERS: ATTEND Nurse Practitioner Family
DX: I10 Essential (primary) hypertension (principal); G89.29 Other chronic pain; M54.41 Lumbago with sciatica, right side; M54.42 Lumbago with sciatica, left side; E78.2 Mixed hyperlipidemia; I65.23 Occlusion and stenosis of bilateral carotid arteries; R91.1 Solitary pulmonary nodule

== ENCOUNTER → 2023-12-23 | Outpatient (REF) | payer MEDICARE, MEDICAID ==
[~2023-12-23] MED LIST changes: +BYST1TAB PO; -BYST20TA2 PO
[2023-12-23 11:38] LABS: HEMOGLOBIN A1c 5.5 % (4.0-6.0)
[2023-12-23 11:58] LABS: ALBUMIN 3.6 G/DL (3.2-5.2); ALKALINE PHOSPHATASE 68 U/L (46-116); ALT/SGPT 22 U/L (7.0-40); AST/SGOT 19 U/L (<34); BILIRUBIN,TOTAL 0.7 MG/DL (0.3-1.2); BLOOD UREA NITROGEN 6 MG/DL (9-23); CALCIUM LEVEL 9.8 MG/DL (8.3-10.6); CARBON DIOXIDE LEVEL 29 MMOL/L (20-31); CHLORIDE LEVEL 103 MMOL/L (98-107); CHOLESTEROL LEVEL 92 MG/DL (<200); CHOLESTEROL RISK RATIO 2.71 (<5); CREATININE FOR GFR 1.02 MG/DL (0.70-1.30); GLOMERULAR FILTRATION RATE > 60.0 (>49); GLUCOSE, FASTING 108 MG/DL (74-106); HDL CHOLESTEROL 33.9 MG/DL (>40); LDL CHOLESTEROL 33.7 MG/DL (<100); NON-HDL-C 58.1 MG/DL; POTASSIUM SERUM 3.7 MMOL/L (3.5-5.1); PSA SCREENING 0.32 NG/ML (< 4.00); SODIUM LEVEL 138 MMOL/L (136-145); TOTAL PROTEIN 6.3 G/DL (5.7-8.2); TRIGLYCERIDES LEVEL 122 MG/DL (<150)
== END ==
LOC: M SFHCCLAY 07:24
PROVIDERS: ATTEND Nurse Practitioner Family
DX: I10 Essential (primary) hypertension (principal); E78.2 Mixed hyperlipidemia; I65.23 Occlusion and stenosis of bilateral carotid arteries; R91.1 Solitary pulmonary nodule; Z12.5 Encounter for screening for malignant neoplasm of prostate; Z79.899 Other long term (current) drug therapy
CPT/HCPCS: 80053; 80061; 83036; G0103

== ENCOUNTER → 2024-06-22 | Outpatient (REF) | payer MEDICARE, MEDICAID ==
[2024-06-22 19:47] LABS: HEMOGLOBIN A1c 5.6 % (4.0-6.0)
[2024-06-22 20:04] LABS: ALBUMIN 3.3 G/DL (3.2-5.2); ALKALINE PHOSPHATASE 69 U/L (46-116); ALT/SGPT 21 U/L (7.0-40); AST/SGOT 14 U/L (<34); BILIRUBIN,TOTAL 0.7 MG/DL (0.3-1.2); BLOOD UREA NITROGEN 9 MG/DL (9-23); CALCIUM LEVEL 9.8 MG/DL (8.3-10.6); CARBON DIOXIDE LEVEL 28 MMOL/L (20-31); CHLORIDE LEVEL 106 MMOL/L (98-107); CHOLESTEROL LEVEL 93 MG/DL (<200); CHOLESTEROL RISK RATIO 2.72 (<5); CREATININE FOR GFR 0.88 MG/DL (0.70-1.30); GLOMERULAR FILTRATION RATE > 60.0 (>42); GLUCOSE, FASTING 99 MG/DL (74-106); HDL CHOLESTEROL 34.1 MG/DL (>40); LDL CHOLESTEROL 36.9 MG/DL (<100); MAGNESIUM LEVEL 1.9 MG/DL (1.8-2.4); NON-HDL-C 58.9 MG/DL; POTASSIUM SERUM 3.9 MMOL/L (3.5-5.1); SODIUM LEVEL 139 MMOL/L (136-145); TOTAL PROTEIN 6.4 G/DL (5.7-8.2); TRIGLYCERIDES LEVEL 110 MG/DL (<150)
[2024-06-22 20:06] LABS: THYROID STIMULATING HORMONE 3.768 uIU/ML (0.55-4.78)
[2024-06-22 20:07] LABS: FREE T4 0.98 NG/DL (0.89-1.76)
== END ==
LOC: M SFHCCLAY 11:13
PROVIDERS: ATTEND Nurse Practitioner Family
DX: Z00.00 Encounter for general adult medical examination without abnormal findings (principal); E78.2 Mixed hyperlipidemia; I10 Essential (primary) hypertension; I65.23 Occlusion and stenosis of bilateral carotid arteries; R91.1 Solitary pulmonary nodule; G62.9 Polyneuropathy, unspecified; Z23 Encounter for immunization; F17.210 Nicotine dependence, cigarettes, uncomplicated; Z79.899 Other long term (current) drug therapy
CPT/HCPCS: 80053; 80061; 83036; 83735; 84439; 84443; 90673; G0008

== ENCOUNTER → 2024-07-16 | Outpatient (CLI) | payer MEDICARE, MEDICAID | LOC: M RAD 12:51 | PROVIDERS: ATTEND Nurse Practitioner Family | DX: G62.9 Polyneuropathy, unspecified (principal); R09.89 Other specified symptoms and signs involving the circulatory and respiratory systems ==

== ENCOUNTER → 2024-08-20 | Outpatient (CLI) | payer MEDICARE, MEDICAID | LOC: M RAD 10:09 | PROVIDERS: ATTEND Nurse Practitioner Family | DX: Z12.2 Encounter for screening for malignant neoplasm of respiratory organs (principal); F17.210 Nicotine dependence, cigarettes, uncomplicated; R91.1 Solitary pulmonary nodule; R93.89 Abnormal findings on diagnostic imaging of other specified body structures ==

== ENCOUNTER → 2024-09-02 | Outpatient (REF) | payer MEDICARE, MEDICAID ==
[2024-09-02 18:40] LABS: BLOOD UREA NITROGEN 10 MG/DL (9-23); CALCIUM LEVEL 9.6 MG/DL (8.3-10.6); CARBON DIOXIDE LEVEL 28 MMOL/L (20-31); CHLORIDE LEVEL 101 MMOL/L (98-107); CREATININE FOR GFR 0.85 MG/DL (0.70-1.30); GLOMERULAR FILTRATION RATE > 60.0 (>42); GLUCOSE, FASTING 146 MG/DL (74-106); POTASSIUM SERUM 3.1 MMOL/L (3.5-5.1); SODIUM LEVEL 138 MMOL/L (136-145)
== END ==
LOC: M SFHCCLAY 10:21
PROVIDERS: ATTEND Nurse Practitioner Family
DX: I10 Essential (primary) hypertension (principal)

== ENCOUNTER → 2024-09-08 | Outpatient (CLI) | payer MEDICARE, MEDICAID ==
[~2024-09-08] MED LIST changes: +ISOVUE-370 76% 100ML VIAL ONE
== END ==
LOC: M PLAIMG 09:26
PROVIDERS: ATTEND Nurse Practitioner Family
DX: N28.1 Cyst of kidney, acquired (principal)
CPT/HCPCS: 74170; Q9967

== ENCOUNTER → 2024-09-24 | Outpatient (REF) | payer MEDICARE, MEDICAID ==
[~2024-09-24] MED LIST changes: -ISOVUE-370 76% 100ML VIAL ONE
[2024-09-24 19:01] LABS: BLOOD UREA NITROGEN 10 MG/DL (9-23); CALCIUM LEVEL 9.6 MG/DL (8.3-10.6); CARBON DIOXIDE LEVEL 28 MMOL/L (20-31); CHLORIDE LEVEL 102 MMOL/L (98-107); CREATININE FOR GFR 0.98 MG/DL (0.70-1.30); GLOMERULAR FILTRATION RATE > 60.0 (>42); GLUCOSE, FASTING 94 MG/DL (74-106); POTASSIUM SERUM 3.9 MMOL/L (3.5-5.1); SODIUM LEVEL 140 MMOL/L (136-145)
== END ==
LOC: M SFHCCLAY 11:06
PROVIDERS: ATTEND Nurse Practitioner Family
DX: E87.6 Hypokalemia (principal)

== ENCOUNTER → 2024-12-28 | Outpatient (REF) | payer MEDICARE, MEDICAID ==
[2024-12-28 18:52] LABS: HEMATOCRIT 48.6 % (42.0-52.0); HEMOGLOBIN 16.3 g/dl (13.5-17.5); MEAN CORPUSCULAR HEMOGLOBIN 31.3 pg (27.0-33.0); MEAN CORPUSCULAR HGB CONC 33.5 g/dl (32.0-36.5); MEAN CORPUSCULAR VOLUME 93.5 fl (80.0-96.0); PLATELET COUNT, AUTOMATED 274 10^3/uL (150-450); WHITE BLOOD COUNT 11.8 10^3/uL (4.0-10.0)
[2024-12-28 19:10] LABS: HEMOGLOBIN A1c 5.4 % (4.0-6.0)
[2024-12-28 19:16] LABS: ALBUMIN 3.9 G/DL (3.2-5.2); ALKALINE PHOSPHATASE 63 U/L (40-129); ALT/SGPT 24 U/L (7.0-40); AST/SGOT 17 U/L (<34); BILIRUBIN,TOTAL 0.9 MG/DL (0.3-1.2); BLOOD UREA NITROGEN 12 MG/DL (9-23); CARBON DIOXIDE LEVEL 28 MMOL/L (20-31); CHLORIDE LEVEL 104 MMOL/L (98-107); CHOLESTEROL LEVEL 117 MG/DL (<200); CHOLESTEROL RISK RATIO 3.17 (<5); GLOMERULAR FILTRATION RATE > 90.0 (>42); GLUCOSE, FASTING 89 MG/DL (74-106); HDL CHOLESTEROL 36.9 MG/DL (>40); LDL CHOLESTEROL 48.9 MG/DL (<100); NON-HDL-C 80.1 MG/DL; POTASSIUM SERUM 3.8 MMOL/L (3.5-5.1); SODIUM LEVEL 138 MMOL/L (136-145); TOTAL PROTEIN 7.1 G/DL (5.7-8.2); TRIGLYCERIDES LEVEL 156 MG/DL (<150)
[2024-12-31 01:08] LABS: PROTEIN, TOTAL SO 7.1 g/dL (6.1-8.1)
== END ==
LOC: M SFHCCLAY 10:57
PROVIDERS: ATTEND Nurse Practitioner Family
DX: E78.2 Mixed hyperlipidemia (principal); I10 Essential (primary) hypertension; D72.829 Elevated white blood cell count, unspecified

== ENCOUNTER → 2025-06-06 | Outpatient (CLI) | payer MEDICARE, MEDICAID ==
[~2025-06-06] MED LIST changes: -EZET10TA21 PO; +EZET10TA57 PO
== END ==
LOC: M PLAIMG 08:39
PROVIDERS: ATTEND Registered Nurse
DX: I35.1 Nonrheumatic aortic (valve) insufficiency (principal)

== ENCOUNTER → 2025-06-29 | Outpatient (REF) | payer MEDICARE, MEDICAID ==
[2025-06-29 13:16] LABS: BASO # 0.1 10^3/uL (0.0-0.2); BASO % 0.8 % (0.0-1.0); EOS # 0.1 10^3/uL (0.0-0.5); EOS % 1.2 % (0.0-3.0); LYMPH # 3.0 10^3/uL (1.5-5.0); LYMPH % 25.1 % (24.0-44.0); MONO # 1.1 10^3/uL (0.0-0.8); MONO % 9.1 % (2.0-8.0); NEUTROPHILS # 7.5 10^3/uL (1.5-8.5); NEUTROPHILS % 63.3 % (36.0-66.0); PLATELET COUNT, AUTOMATED 279 10^3/uL (150-450)
[2025-06-29 13:21] LABS: ALT/SGPT 20 U/L (7.0-40); AST/SGOT 18 U/L (<34); CALCIUM LEVEL 10.0 MG/DL (8.3-10.6); CARBON DIOXIDE LEVEL 29 MMOL/L (20-31); CHLORIDE LEVEL 101 MMOL/L (98-107); CHOLESTEROL LEVEL 116 MG/DL (<200); CHOLESTEROL RISK RATIO 2.93 (<5); CREATININE FOR GFR 0.86 MG/DL (0.70-1.30); GLOMERULAR FILTRATION RATE > 90.0 (>42); LDL CHOLESTEROL 53.9 MG/DL (<100); NON-HDL-C 76.5 MG/DL; POTASSIUM SERUM 3.7 MMOL/L (3.5-5.1); SODIUM LEVEL 140 MMOL/L (136-145); TRIGLYCERIDES LEVEL 113 MG/DL (<150)
[2025-06-29 13:47] LABS: ESTIMATED AVERAGE GLUCOSE 114.0 MG/DL (60-110)
== END ==
LOC: M SFHCCLAY 09:25
PROVIDERS: ATTEND Nurse Practitioner Family
DX: I70.201 Unspecified atherosclerosis of native arteries of extremities, right leg (principal); E78.2 Mixed hyperlipidemia; I10 Essential (primary) hypertension; I65.23 Occlusion and stenosis of bilateral carotid arteries; R91.1 Solitary pulmonary nodule; G62.9 Polyneuropathy, unspecified; F17.210 Nicotine dependence, cigarettes, uncomplicated; E66.01 Morbid (severe) obesity due to excess calories; Z79.899 Other long term (current) drug therapy

== ENCOUNTER → 2025-08-23 | Outpatient (CLI) | payer MEDICARE, MEDICAID | LOC: M RAD 12:28 | PROVIDERS: ATTEND Nurse Practitioner Family | DX: Z12.2 Encounter for screening for malignant neoplasm of respiratory organs (principal); F17.210 Nicotine dependence, cigarettes, uncomplicated ==